=== PATIENT | male | born 1965 | race American Indian/Alaskan Native ===

== ENCOUNTER 2017-03-22 17:41 | Inpatient (IN) | payer SELFPAY ==
[2017-03-22] MEDS ORDERED: NACL 0.9% 500 ML 500 ML IV ONE (18:59)
[2017-03-22 19:52] LABS: Alanine Aminotransferase 20 units/L (7-56); Albumin 3.6 g/dL (3.9-5); Albumin/Globulin Ratio 0.9 %; Alkaline Phosphatase 107 units/L (35-129); Anion Gap 18 mmol/L; BUN/Creatinine Ratio 17.77; Blood Urea Nitrogen 16 mg/dL (9-20); Calcium 8.8 mg/dL (8.4-10.2); Carbon Dioxide 26 mmol/L (22-30); Chloride 94.7 mmol/L (98-107); Glucose 102 mg/dL (75-100); Potassium 4.2 mmol/L (3.6-5.0); Sodium 134 mmol/L (137-145); Total Protein 7.7 g/dL (6.3-8.2)
[2017-03-22 20:02] LABS: Basophils % (Auto) 0.9 % (0.0-1.8); Eosinophils % (Auto) 0.5 % (0.0-4.3); Hematocrit 38.1 % (35.5-45.6); Hemoglobin 12.5 gm/dl (11.8-15.2); Mean Corpuscular HGB Conc 33 % (32-34); Mean Corpuscular Hemoglobin 28 pg (28-32); Mean Corpuscular Volume 87 fl (84-94); Platelet Count 464 K/mm3 (140-440); White Blood Count 11.7 K/mm3 (4.5-11.0)
[2017-03-22 20:10] LABS: INR 0.96 (0.87-1.13)
--- NOTE | 2017-03-22 20:17 | XRay Report ---
FINAL REPORT EXAM: XR CHEST 1V AP HISTORY: possible Sepsis TECHNIQUE: AP portable view of the chest. PRIORS: None. FINDINGS: The cardiomediastinal silhouette appears normal. There is a small patchy oval opacity in the right mid lung. The left lung is clear. The bones and soft tissues are unremarkable. IMPRESSION: Right midlung oval patchy opacity probably consistent with infiltrate or mass. Recommend further evaluation with CT.
[2017-03-22 20:46] LABS: Bilirubin,Urine NEG (Negative); Blood,Urine MOD (Negative); Ketones,Urine TR mg/dL (Negative); Leukocyte Esterase,Urine NEG (Negative); Mucus,Urine 1+ /HPF; Nitrite,Urine NEG (Negative); WBC,Urine < 1.0 /HPF (0.0-6.0)
[2017-03-22] MEDS ORDERED: ZITHROMAX 500 MG in NACL 0.9% 250ML 250 ML IV ONE (21:29)
[2017-03-22] MEDS ORDERED: ROCEPHIN/NS 1 GM/50 ML 1 GM/50 ML BAG IV ONE (21:29)
[2017-03-22] MEDS ORDERED: NACL 0.9% 1000 ML 1,000 ML IV ONE (21:30)
--- NOTE | 2017-03-22 22:35 | Emergency Department Report ---
ED Fever HPI - General Chief Complaint: Fever Stated Complaint: FEVER/WEAKNESS Time Seen by Provider: 03/22/17 21:28 Source: patient, family Exam Limitations: no limitations - History of Present Illness Initial Comments: 51-year-old male with no significant past medical history presents to the hospital complaints of fever intermittently for the past 2 weeks. Positive cough productive of clear sputum now primarily dry. No reports of recent travel or known sick contacts. Patient complains of generalized achy joint pain. Decreased appetite reported. Denies shortness of breath, nausea, vomiting, diarrhea, [place] pain, or dysuria. Patient does smoke cigarettes. ED Review of Systems ROS: Stated complaint: FEVER/WEAKNESS Other details as noted in HPI Comment: All other systems reviewed and negative Other: Constitutional: As per HPI Eyes: No eye pain visual changes or discharge ENT: No ear pain or throat pain Neck: Denies pain Respiratory: Denies h wheezing shortness of breath Cardiovascular: Denies chest pain, palpitations, syncope GI: Denies abdominal pain, nausea, vomiting, diarrhea : Denies dysuria Musculoskeletal: Denies back pain Skin: Denies rash, lesions, erythema Neurologic: Denies headache, numbness, weakness Psychiatric: Denies suicidal ideation, hallucinations ED Past Medical Hx - Past Medical History Previous Medical History?: No - Surgical History Additional Surgical History: RIGHT KNEE SURGERY - Social History Smoking Status: Current Every Day Smoker Substance Use Type: None ED Physical Exam - General Limitations: No Limitations - Other Other exam information: General: No limitations, patient is alert in no acute distress Head exam: Atraumatic, normocephalic Eyes exam: Normal appearance, pupils equal reactive to light, extraocular movements intact ENT: Moist mucous membrane, normal oropharynx Neck exam: Normal inspection, full range of motion, no meningismus nontender Respiratory exam: Clear to auscultation bilateral, no wheezes, rales, crackles Cardiovascular: Normal rate and rhythm, normal heart sounds Abdomen: Soft, nondistended, and nontender, with normal bowel sounds, no rebound, or guarding Extremity: Full range of motion normal inspection no deformity Back: Normal Inspection, full range of motion, no tenderness Neurologic: Alert, oriented x3, cranial nerves intact, no motor or sensory deficit Psychiatric: normal affect, normal mood Skin: Warm, dry, intact ED Course Vital Signs 03/22/17 03/22/17 03/22/17 18:54 21:00 21:01 Temperature 100.7 F H 99.6 F Pulse Rate 98 H 94 H Respiratory 19 18 16 Rate Blood Pressure 124/79 Blood Pressure 99/68 [Left] O2 Sat by Pulse 100 98 98 Oximetry - Reevaluation(s) Reevaluation #1: 03/22/17 23:18 Blood pressure improving with saline - Consultations Consultation #1: 03/22/17 23:13 case d/w Dr. Coronado (field manager) rec Levaquin 750 and clindamycin 900 mg. Respiratory isolation and rule out TB. will consult ED Medical Decision Making - Lab Data Result diagrams: 03/22/17 19:14 03/22/17 19:14 Lab Results 03/22/17 03/22/17 03/22/17 Range/Units 19:14 19:14 19:14 WBC 11.7 H (4.5-11.0) K/mm3 RBC 4.40 (3.65-5.03) M/mm3 Hgb 12.5 (11.8-15.2) gm/dl Hct 38.1 (35.5-45.6) % MCV 87 (84-94) fl MCH 28 (28-32) pg MCHC 33 (32-34) % RDW 13.0 L (13.2-15.2) % Plt Count 464 H (140-440) K/mm3 Lymph % (Auto) 13.2 L (13.4-35.0) % [place] % (Auto) 7.4 H (0.0-7.3) % Eos % (Auto) 0.5 (0.0-4.3) % Baso % (Auto) 0.9 (0.0-1.8) % Lymph # 1.5 (1.2-5.4) K/mm3 [place] # 0.9 H (0.0-0.8) K/mm3 Eos # 0.1 (0.0-0.4) K/mm3 Baso # 0.1 (0.0-0.1) K/mm3 Seg Neutrophils % 78.0 H (40.0-70.0) % Seg Neutrophils # 9.1 H (1.8-7.7) K/mm3 PT 13.3 (12.2-14.9) Sec. INR 0.96 (0.87-1.13) VBG pH (7.320-7.420) Sodium 134 L (137-145) mmol/L Potassium 4.2 (3.6-5.0) mmol/L Chloride 94.7 L (98-107) mmol/L Carbon Dioxide 26 (22-30) mmol/L Anion Gap 18 mmol/L BUN 16 (9-20) mg/dL Creatinine 0.9 (0.8-1.5) mg/dL Estimated GFR > 60 ml/min BUN/Creatinine Ratio 17.77 % Glucose 102 H (75-100) mg/dL Lactic Acid (0.7-2.0) mmol/L Calcium 8.8 (8.4-10.2) mg/dL Total Bilirubin 0.20 (0.1-1.2) mg/dL AST 16 (5-40) units/L ALT 20 (7-56) units/L Alkaline Phosphatase 107 (35-129) units/L Total Protein 7.7 (6.3-8.2) g/dL Albumin 3.6 L (3.9-5) g/dL Albumin/Globulin Ratio 0.9 % Urine Color (Yellow) Urine Turbidity (Clear) Urine pH (5.0-7.0) Ur Specific [place] (1.003-1.030) Urine Protein (Negative) mg/dL Urine Glucose (UA) (Negative) mg/dL Urine Ketones (Negative) mg/dL Urine Blood (Negative) Urine Nitrite (Negative) Urine Bilirubin (Negative) Urine Urobilinogen (<2.0) mg/dL Ur Leukocyte Esterase (Negative) Urine WBC (Auto) (0.0-6.0) /HPF Urine RBC (Auto) (0.0-6.0) /HPF Urine Mucus /HPF 03/22/17 03/22/17 03/22/17 Range/Units 19:14 19:14 20:14 WBC (4.5-11.0) K/mm3 RBC (3.65-5.03) M/mm3 Hgb (11.8-15.2) gm/dl Hct (35.5-45.6) % MCV (84-94) fl MCH (28-32) pg MCHC (32-34) % RDW (13.2-15.2) % Plt Count (140-440) K/mm3 Lymph % (Auto) (13.4-35.0) % [place] % (Auto) (0.0-7.3) % Eos % (Auto) (0.0-4.3) % Baso % (Auto) (0.0-1.8) % Lymph # (1.2-5.4) K/mm3 [place] # (0.0-0.8) K/mm3 Eos # (0.0-0.4) K/mm3 Baso # (0.0-0.1) K/mm3 Seg Neutrophils % (40.0-70.0) % Seg Neutrophils # (1.8-7.7) K/mm3 PT (12.2-14.9) Sec. INR (0.87-1.13) VBG pH 7.420 (7.320-7.420) Sodium (137-145) mmol/L Potassium (3.6-5.0) mmol/L Chloride (98-107) mmol/L Carbon Dioxide (22-30) mmol/L Anion Gap mmol/L BUN (9-20) mg/dL Creatinine (0.8-1.5) mg/dL Estimated GFR ml/min BUN/Creatinine Ratio % Glucose (75-100) mg/dL Lactic Acid 0.80 (0.7-2.0) mmol/L Calcium (8.4-10.2) mg/dL Total Bilirubin (0.1-1.2) mg/dL AST (5-40) units/L ALT (7-56) units/L Alkaline Phosphatase (35-129) units/L Total Protein (6.3-8.2) g/dL Albumin (3.9-5) g/dL Albumin/Globulin Ratio % Urine Color Yellow (Yellow) Urine Turbidity Clear (Clear) Urine pH 6.0 (5.0-7.0) Ur Specific [place] 1.029 (1.003-1.030) Urine Protein 30 mg/dl (Negative) mg/dL Urine Glucose (UA) Neg (Negative) mg/dL Urine Ketones Tr (Negative) mg/dL Urine Blood Mod (Negative) Urine Nitrite Neg (Negative) Urine Bilirubin Neg (Negative) Urine Urobilinogen 2.0 (<2.0) mg/dL Ur Leukocyte Esterase Neg (Negative) Urine WBC (Auto) < 1.0 (0.0-6.0) /HPF Urine RBC (Auto) 91.0 (0.0-6.0) /HPF Urine Mucus 1+ /HPF 03/22/17 Range/Units 20:21 WBC (4.5-11.0) K/mm3 RBC (3.65-5.03) M/mm3 Hgb (11.8-15.2) gm/dl Hct (35.5-45.6) % MCV (84-94) fl MCH (28-32) pg MCHC (32-34) % RDW (13.2-15.2) % Plt Count (140-440) K/mm3 Lymph % (Auto) (13.4-35.0) % [place] % (Auto) (0.0-7.3) % Eos % (Auto) (0.0-4.3) % Baso % (Auto) (0.0-1.8) % Lymph # (1.2-5.4) K/mm3 [place] # (0.0-0.8) K/mm3 Eos # (0.0-0.4) K/mm3 Baso # (0.0-0.1) K/mm3 Seg Neutrophils % (40.0-70.0) % Seg Neutrophils # (1.8-7.7) K/mm3 PT (12.2-14.9) Sec. INR (0.87-1.13) VBG pH (7.320-7.420) Sodium (137-145) mmol/L Potassium (3.6-5.0) mmol/L Chloride (98-107) mmol/L Carbon Dioxide (22-30) mmol/L Anion Gap mmol/L BUN (9-20) mg/dL Creatinine (0.8-1.5) mg/dL Estimated GFR ml/min BUN/Creatinine Ratio % Glucose (75-100) mg/dL Lactic Acid 0.70 (0.7-2.0) mmol/L Calcium (8.4-10.2) mg/dL Total Bilirubin (0.1-1.2) mg/dL AST (5-40) units/L ALT (7-56) units/L Alkaline Phosphatase (35-129) units/L Total Protein (6.3-8.2) g/dL Albumin (3.9-5) g/dL Albumin/Globulin Ratio % Urine Color (Yellow) Urine Turbidity (Clear) Urine pH (5.0-7.0) Ur Specific [place] (1.003-1.030) Urine Protein (Negative) mg/dL Urine Glucose (UA) (Negative) mg/dL Urine Ketones (Negative) mg/dL Urine Blood (Negative) Urine Nitrite (Negative) Urine Bilirubin (Negative) Urine Urobilinogen (<2.0) mg/dL Ur Leukocyte Esterase (Negative) Urine WBC (Auto) (0.0-6.0) /HPF Urine RBC (Auto) (0.0-6.0) /HPF Urine Mucus /HPF - EKG Data -: EKG Interpreted by Me (sinus rhythm rate 88 with left atrial enlargement. No ST elevation [place]) - EKG Data When compared to previous EKG there are: previous EKG unavailable - Radiology Data Radiology results: report reviewed Chest x-ray: A right midlung oval patchy opacity probably consistent with infiltrate or mass. Recommend CT. CT chest IV contrast: Left upper lobe consolidated infiltrate is consistent with pneumonia with a small 1.7 cm abscess. There are infiltrates in the superior segment of the left lower lobe, and from medial right upper lobe and superior segment of the right lower lobe consistent with pneumonia possibly representing septic emboli. - Medical Decision Making Azithromycin and Rocephin initially given after initial chest x-ray reading of pneumonia. CT suggests abscess and multiple infiltrative processes therefore Levaquin and clindamycin also ordered after discussion for pulmonology. Patient in respiratory isolation until completely cleared for tuberculosis. Hospitalist will be performed. Cultures are pending. After discussion with Dr. Disla admitting physician and she recommends to hold on the Levaquin given that this drug can be used to treat TB and she would discuss treatment plan with field manager before administration - Differential Diagnosis viral syndrome, pneumonia, bronchitis, sepsis Critical Care Time: No Critical care attestation.: If time is entered above; I have spent that time in minutes in the direct care of this critically ill patient, excluding procedure time. ED Disposition Clinical Impression: Pneumonia, Pulmonary abscess Disposition: OP ADMIT IP TO THIS HOSP Is pt being admited?: Yes Condition: Stable Time of Disposition: 23:29 (Dr Disla/hosp)
--- NOTE | 2017-03-22 22:46 | Cat Scan Report ---
FINAL REPORT EXAM: CT CHEST W CON HISTORY: right lung oval infiltrate vs mass TECHNIQUE: High-resolution helical axial images were obtained of the chest during intravenous administration of iodinated contrast. Images are reconstructed in the sagittal and coronal planes. PRIORS: None. FINDINGS: The heart and thoracic aorta appear normal. There is no hilar or mediastinal adenopathy. There is a 4.8 x 3.9 x 3.7 cm left apical consolidative infiltrate with a 1.7 x 1.3 x 0.9 cm loculated fluid collection consistent with an abscess. It also has a 7 mm cavity. There is a 1.8 cm rounded shaggy mass with a small internal cavity in the superior segment of the left lower lobe. It has a 5 mm satellite lesion. On the right there is a superior segment right lower lobe peripheral wedge-shaped consolidative infiltrate measuring 3.0 cm. This corresponds to the radiographic finding. There is a small inferior medial right upper lobe infiltrate. Images through the upper abdomen are unremarkable. The bones are unremarkable. IMPRESSION: 1. Left upper lobe consolidative infiltrate is consistent with pneumonia with a small, 1.7 cm abscess. 2. There are infiltrates in the superior segment of the left lower lobe, inferomedial right upper lobe and superior segment of the right lower lobe consistent with pneumonia and possibly representing septic emboli.
[2017-03-22] MEDS ORDERED: TORADOL IV ONE (22:48)
[2017-03-22] MEDS ORDERED: TYLENOL PO ONE (22:48)
[2017-03-22] MEDS ORDERED: CLEOCIN 900 MG/50 mL 900 MG/50 ML BAG IV ONE (23:11)
[2017-03-22] MEDS ORDERED: LEVAQUIN 750MG/150ML 750 MG/150 ML BAG IV ONE (23:11)
--- NOTE | 2017-03-22 23:43 | History and Physical Report ---
History of Present Illness Date of examination: 03/22/17 History of present illness: 51-year-old man with no medical problems comes emergency room with complaints of fever and chills intermittently over one and a half weeks. He complains of a cough productive of clear phlegm. He denies shortness of breath, hemoptysis, weight loss, night sweats Patient denies chest pain, palpitation, shortness of breath, cough, abdominal pain, hematochezia, dysuria, frequency, focal weakness, dysarthria, polydipsia polyuria, hot or cold intolerance, easy bruisability, or rash or bleeding from mucosal membrane, rhinorrhea, epistaxis, earache, tinnitus, blurry vision, eye discharge, anxiety, depression. Other review of systems negative Past medical history: none PAST SURGICAL HISTORY: Knee surgery SOCIAL HISTORY: Admits to tobacco, alcohol, no drugs FAMILY HISTORY: Hypertension Medications and Allergies Allergies Allergy/AdvReac Type Severity Reaction Status Date / Time No Known Allergies Allergy Verified 03/22/17 21:29 Exam - Physical Exam Narrative exam: Gen. appearance: Patient lying in bed, no apparent distress HEENT: Normocephalic, atraumatic, pupils equally round and reactive to light, extraocular movement intact, and no sclericterus,. No JVD or thyromegaly or nodule,neck supple, no carotid bruit ,mucous membranes moist, no exudate or erythema Heart: S1, S2, regular rate and rhythm Lungs: Crackles in the lung upper lung, breathing comfortable Abdomen: Positive bowel sounds, nontender, nondistended, no organomegaly Extremity: No edema, cyanosis, clubbing Skin: No rash, nodules, warm, dry Neuro: Oriented 3, cranial nerves II-12 intact, speech is fluent, motor and sensory intact - Constitutional Vitals: Temp Pulse Resp BP Pulse Ox 99.6 F 94 H 16 99/68 98 03/22/17 21:00 03/22/17 21:00 03/22/17 21:01 03/22/17 21:00 03/22/17 21:01 Results - Labs CBC & Chem 7: 03/22/17 19:14 03/22/17 19:14 Labs: Abnormal lab results 03/22/17 03/22/17 Range/Units 19:14 19:14 WBC 11.7 H (4.5-11.0) K/mm3 RDW 13.0 L (13.2-15.2) % Plt Count 464 H (140-440) K/mm3 Lymph % (Auto) 13.2 L (13.4-35.0) % [place] % (Auto) 7.4 H (0.0-7.3) % [place] # 0.9 H (0.0-0.8) K/mm3 Seg Neutrophils % 78.0 H (40.0-70.0) % Seg Neutrophils # 9.1 H (1.8-7.7) K/mm3 Sodium 134 L (137-145) mmol/L Chloride 94.7 L (98-107) mmol/L Glucose 102 H (75-100) mg/dL Albumin 3.6 L (3.9-5) g/dL - Imaging and Cardiology Chest x-ray: image reviewed CT scan - chest: report reviewed Assessment and Plan Assessment Community-acquired pneumonia with abscess, rule out TB Plan Admit to medicine Start IV Rocephin, clindamycin Place on respiratory isolation,follow cultures Consult pulmonary, check sputum for AFB Start DVT prophylaxis
[2017-03-23] MEDS ORDERED: TYLENOL PO PRN (00:09)
[2017-03-23] MEDS ORDERED: ZOFRAN IV PRN (00:09)
[2017-03-23] MEDS ORDERED: PROVENTIL IH PRN (00:09)
[2017-03-23] MEDS ORDERED: DULCOLAX PR PRN (00:09)
[2017-03-23] MEDS ORDERED: MILK OF MAGNESIA PO PRN (00:09)
--- NOTE | 2017-03-23 09:14 | Progress Note ---
Assessment and Plan Assessment and plan: Patient is a 51-year-old male with no significant past medical history presents to the hospital complaints of fever intermittently for the past 2 weeks with cough productive of clear sputum now primarily dry. No reports of recent travel or known sick contacts. Patient complains of generalized achy joint pain. Decreased appetite reported. Denies shortness of breath, nausea, vomiting, diarrhea, [place] pain, or dysuria. Patient does smoke cigarettes. imaging stuides were concerning for Left upper lobe consolidated infiltrate is consistent with pneumonia with a small 1.7 cm abscess. There are infiltrates in the superior segment of the left lower lobe, and from medial right upper lobe and superior segment of the right lower lobe consistent with pneumonia possibly representing septic emboli on CT. * Pneumonia with abscess, R/O TB vs mass- Continue emperic abx WITH Clindamycin and Rocephin, no growth on cultures, ID and pulmonary consult, Sputum for AFB, also check legionella Antigen. * Mild protein calorie malnutrition- paper bag inspector consult. * DVT/GI prophy History Interval history: Patient seen and examined, in no acute distress. denies any chest pain, nausea, vomiting or diarrhea and no chest pain or Hospitalist Physical - Physical exam Narrative exam: VITAL SIGNS: Reviewed. GENERAL: The patient appeared well nourished and normally developed. Vital signs as documented. HEAD: No signs of head trauma. EYES: Pupils are equal. Extraocular motions intact. EARS: Hearing grossly intact. MOUTH: Oropharynx is normal. NECK: No adenopathy, no JVD. CHEST: Chest with clear breath sounds bilaterally. No wheezes, rales, or rhonchi. CARDIAC: Regular rate and rhythm. S1 and S2, without murmurs, gallops, or rubs. VASCULAR: No Edema. Peripheral pulses normal and equal in all extremities. ABDOMEN: Soft, without detectable tenderness. No sign of distention. No rebound or guarding, and no masses palpated. Bowel Sounds normal. MUSCULOSKELETAL: Good range of motion of all major joints. Extremities without clubbing, cyanosis or edema. NEUROLOGIC EXAM: Alert and oriented x 3. No focal sensory or strength deficits. Speech normal. Follows commands. PSYCHIATRIC: Mood normal. SKIN: No rash or lesions. - Constitutional Vitals: Temp Pulse Resp BP Pulse Ox 98.9 F 91 H 18 128/67 98 03/23/17 08:00 03/23/17 08:00 03/23/17 08:00 03/23/17 08:00 03/23/17 08:00 Results - Labs CBC & Chem 7: 03/22/17 19:14 03/22/17 19:14 Labs: Laboratory Last Values WBC 11.7 K/mm3 (4.5-11.0) H 03/22/17 19:14 RBC 4.40 M/mm3 (3.65-5.03) 03/22/17 19:14 Hgb 12.5 gm/dl (11.8-15.2) 03/22/17 19:14 Hct 38.1 % (35.5-45.6) 03/22/17 19:14 MCV 87 fl (84-94) 03/22/17 19:14 MCH 28 pg (28-32) 03/22/17 19:14 MCHC 33 % (32-34) 03/22/17 19:14 RDW 13.0 % (13.2-15.2) L 03/22/17 19:14 Plt Count 464 K/mm3 (140-440) H 03/22/17 19:14 Lymph % (Auto) 13.2 % (13.4-35.0) L 03/22/17 19:14 [place] % (Auto) 7.4 % (0.0-7.3) H 03/22/17 19:14 Eos % (Auto) 0.5 % (0.0-4.3) 03/22/17 19:14 Baso % (Auto) 0.9 % (0.0-1.8) 03/22/17 19:14 Lymph # 1.5 K/mm3 (1.2-5.4) 03/22/17 19:14 [place] # 0.9 K/mm3 (0.0-0.8) H 03/22/17 19:14 Eos # 0.1 K/mm3 (0.0-0.4) 03/22/17 19:14 Baso # 0.1 K/mm3 (0.0-0.1) 03/22/17 19:14 Seg Neutrophils % 78.0 % (40.0-70.0) H 03/22/17 19:14 Seg Neutrophils # 9.1 K/mm3 (1.8-7.7) H 03/22/17 19:14 PT 13.3 Sec. (12.2-14.9) 03/22/17 19:14 INR 0.96 (0.87-1.13) 03/22/17 19:14 VBG pH 7.420 (7.320-7.420) 03/22/17 19:14 Sodium 134 mmol/L (137-145) L 03/22/17 19:14 Potassium 4.2 mmol/L (3.6-5.0) 03/22/17 19:14 Chloride 94.7 mmol/L (98-107) L 03/22/17 19:14 Carbon Dioxide 26 mmol/L (22-30) 03/22/17 19:14 Anion Gap 18 mmol/L 03/22/17 19:14 BUN 16 mg/dL (9-20) 03/22/17 19:14 Creatinine 0.9 mg/dL (0.8-1.5) 03/22/17 19:14 Estimated GFR > 60 ml/min 03/22/17 19:14 BUN/Creatinine Ratio 17.77 % 03/22/17 19:14 Glucose 102 mg/dL (75-100) H 03/22/17 19:14 Lactic Acid 0.70 mmol/L (0.7-2.0) 03/22/17 20:21 Calcium 8.8 mg/dL (8.4-10.2) 03/22/17 19:14 Total Bilirubin 0.20 mg/dL (0.1-1.2) 03/22/17 19:14 AST 16 units/L (5-40) 03/22/17 19:14 ALT 20 units/L (7-56) 03/22/17 19:14 Alkaline Phosphatase 107 units/L (35-129) 03/22/17 19:14 Total Protein 7.7 g/dL (6.3-8.2) 03/22/17 19:14 Albumin 3.6 g/dL (3.9-5) L 03/22/17 19:14 Albumin/Globulin Ratio 0.9 % 03/22/17 19:14 Urine Color Yellow (Yellow) 03/22/17 20:14 Urine Turbidity Clear (Clear) 03/22/17 20:14 Urine pH 6.0 (5.0-7.0) 03/22/17 20:14 Ur Specific [place] 1.029 (1.003-1.030) 03/22/17 20:14 Urine Protein 30 mg/dl mg/dL (Negative) 03/22/17 20:14 Urine Glucose (UA) Neg mg/dL (Negative) 03/22/17 20:14 Urine Ketones Tr mg/dL (Negative) 03/22/17 20:14 Urine Blood Mod (Negative) 03/22/17 20:14 Urine Nitrite Neg (Negative) 03/22/17 20:14 Urine Bilirubin Neg (Negative) 03/22/17 20:14 Urine Urobilinogen 2.0 mg/dL (<2.0) 03/22/17 20:14 Ur Leukocyte Esterase Neg (Negative) 03/22/17 20:14 Urine WBC (Auto) < 1.0 /HPF (0.0-6.0) 03/22/17 20:14 Urine RBC (Auto) 91.0 /HPF (0.0-6.0) 03/22/17 20:14 Urine Mucus 1+ /HPF 03/22/17 20:14
[2017-03-23] MEDS: ROCEPHIN/NS 1 GM/50 ML 1 GM/50 ML BAG IV SCH (09:25)
--- NOTE | 2017-03-23 16:28 | Consultation ---
History of Present Illness Consult date: 03/23/17 Requesting physician: SALLIE LEGGETT History of present illness: 51-year-old man with no medical problems comes emergency room with complaints of fever and chills intermittently over one and a half weeks. He complains of a cough productive of clear phlegm. He denies shortness of breath, hemoptysis, weight loss, but has night sweats Patient denies chest pain, palpitation, shortness of breath, cough, abdominal pain, hematochezia, dysuria, frequency, focal weakness, dysarthria, polydipsia polyuria, hot or cold intolerance, easy bruisability, or rash or bleeding from mucosal membrane, rhinorrhea, epistaxis, earache, tinnitus, blurry vision, eye discharge, anxiety, depression. Other review of systems negative No reports of recent travel or known sick contacts. Patient complains of generalized achy joint pain. Decreased appetite reported. Patient does smoke cigarettes 1/2 PPD to 1PPD. Imaging stuides were concerning for Left upper lobe consolidated infiltrate is consistent with pneumonia with a small 1.7 cm abscess. There are infiltrates in the superior segment of the left lower lobe, and from medial right upper lobe and superior segment of the right lower lobe consistent with pneumonia possibly representing septic emboli on CT. We have been consulted to assist with management. Differentials include septic emboli, however in the absence of positive blood cultures and his negative history of drug abuse, this is unlikely. He will need a TTE to r/o vegetations. Other differentials include cavitary pneumonia ( MRSA or lung abscess from aspiration-he does have a history of alcohol use). He looks too well for an acute bacterial process. With his history of smoking, >10Pack year, we must r/o cavitary malignancy with metastatic disease_ Nicotine withdrawl precautions, smoking cessation counselling done at the bedside CT guided biopsy of the right lower lobe pleural based lesion- send tissue for pathology and microbiology/fungal smear/AFB smear ad cultures. Other differentials include sarcoidosis, wergener's granulomatosis, fungal pneumonias and TB as previously mentioned. Patient needs appropriate coverage for CAP- add azithromycin to his antibiotic regimen. Avoid the respiratory fluoroquinolones as they can partially treat TB Place PPD. Get SIDRA with reflex. Urine drug screen HIV screen Care plan was discussed extensively with the patient and his fiancee at the bedside. They verbalized understanding, though the patient is frustrated by the whole process. Thank you very much for this consult. We shall continue to follow him. Please do not hesitate to call with questions or concerns Past History Past Medical History: No medical history Social history: smoking, full code, other (engaged) Family history: no significant family history Medications and Allergies Allergies Allergy/AdvReac Type Severity Reaction Status Date / Time No Known Allergies Allergy Verified 03/22/17 21:29 Home Medications Medication Instructions Recorded Confirmed Last Taken Type No Known Home Medications [No 03/23/17 03/23/17 Unknown History Reported Home Medications] Active Meds: Active Medications Acetaminophen (Tylenol) 650 mg PO Q4H PRN PRN Reason: Pain MILD(1-3)/Fever >100.5/OJEDA Albuterol (Proventil) 2.5 mg IH Q3HRT PRN PRN Reason: Shortness Of Breath Bisacodyl (Dulcolax) 10 mg MS QDAY PRN PRN Reason: Constipation unrelieved by MOM Ceftriaxone Sodium (Rocephin/Ns 1 Gm/50 Ml) 1 gm in 50 mls @ 100 mls/hr IV Q24HR TRACY PRN Reason: Protocol Last Admin: 03/23/17 09:25 Dose: 100 mls/hr Magnesium Hydroxide (Milk Of Magnesia) 30 ml PO Q4H PRN PRN Reason: Constipation Ondansetron HCl (Zofran) 4 mg IV Q8H PRN PRN Reason: N/V unrelieved by Reglan Review of Systems All systems: negative Physical Examination Vital signs: Vital Signs Temp Pulse Resp BP Pulse Ox 100.7 F H 98 H 19 124/79 100 03/22/17 18:54 03/22/17 18:54 03/22/17 18:54 03/22/17 18:54 03/22/17 18:54 General appearance: no acute distress Eyes: non-icteric ENT: oropharynx moist Neck: supple, no lymphadenopathy, no JVD Effort: normal Ascultation: Right: rhonchi (upper lobe ), Bilateral: diminished breath sounds Cardiovascular: regular rate and rhythm Gastrointestinal: normoactive bowel sounds, soft, non-tender, non-distended Integumentary: normal Extremities: no cyanosis, no edema, pink and warm, pulses normal, no ischemia or petechiae Musculoskeletal: no deformities Gait: normal gait, normal posture normal mental status, non-focal exam, pupils equal and round, CN II-XII normal, motor strength normal and mood appropriate, affect normal Results - Laboratory Findings CBC and BMP: 03/22/17 19:14 03/22/17 19:14 PT/INR, D-dimer PT 13.3 Sec. (12.2-14.9) 03/22/17 19:14 INR 0.96 (0.87-1.13) 03/22/17 19:14 - Diagnostic Findings CT scan - chest: image reviewed
[2017-03-24 06:07] LABS: Eosinophils % (Auto) 0.6 % (0.0-4.3); Hemoglobin 12.2 gm/dl (11.8-15.2); Mean Corpuscular HGB Conc 33 % (32-34); Mean Corpuscular Hemoglobin 28 pg (28-32); Mean Corpuscular Volume 86 fl (84-94); Platelet Count 456 K/mm3 (140-440); Red Blood Count 4.29 M/mm3 (3.65-5.03); Red Cell Distribution Width 13.1 % (13.2-15.2); White Blood Count 9.7 K/mm3 (4.5-11.0)
[2017-03-24 06:32] LABS: Anion Gap 19 mmol/L; Blood Urea Nitrogen 11 mg/dL (9-20); Calcium 8.9 mg/dL (8.4-10.2); Carbon Dioxide 24 mmol/L (22-30); Chloride 99.8 mmol/L (98-107); Glucose 93 mg/dL (75-100); Potassium 4.5 mmol/L (3.6-5.0); Sodium 138 mmol/L (137-145)
--- NOTE | 2017-03-24 09:56 | Progress Note ---
Assessment and Plan Assessment and plan: Patient is a 51-year-old male with no significant past medical history presents to the hospital complaints of fever intermittently for the past 2 weeks with cough productive of clear sputum now primarily dry. No reports of recent travel or known sick contacts. Patient complains of generalized achy joint pain. Decreased appetite reported. Denies shortness of breath, nausea, vomiting, diarrhea, [place] pain, or dysuria. Patient does smoke cigarettes. imaging stuides were concerning for Left upper lobe consolidated infiltrate is consistent with pneumonia with a small 1.7 cm abscess. There are infiltrates in the superior segment of the left lower lobe, and from medial right upper lobe and superior segment of the right lower lobe consistent with pneumonia possibly representing septic emboli on CT. * Pneumonia with abscess, R/O TB vs mass- Continue empiric abx W/ Clindamycin and Rocephin, Azithromycin added, no growth on cultures, ID and pulmonary consult NOTED, Sputum for AFB, also check legionella Antigen, Ct guided biopsy Held due to improvement, ?bronch evaluate for pathology/Micro/fungal smear, Afb Smear and cultures, Follow PPD, SIDRA, UDS, HIV screen. * Mild protein calorie malnutrition- catalyst operator consult. * Tobacco abuse- Cessation discussed in detail, 15 minutes of counselling, community resources provided. * DVT/GI prophy History Interval history: Patient seen and examined, in no acute distress. denies any chest pain, nausea, vomiting or diarrhea and no chest pain. Hospitalist Physical - Physical exam Narrative exam: VITAL SIGNS: Reviewed. GENERAL: The patient appeared well nourished and normally developed. Vital signs as documented. HEAD: No signs of head trauma. EYES: Pupils are equal. Extraocular motions intact. EARS: Hearing grossly intact. MOUTH: Oropharynx is normal. NECK: No adenopathy, no JVD. CHEST: Chest with clear breath sounds bilaterally. No wheezes, rales, or rhonchi. CARDIAC: Regular rate and rhythm. S1 and S2, without murmurs, gallops, or rubs. VASCULAR: No Edema. Peripheral pulses normal and equal in all extremities. ABDOMEN: Soft, without detectable tenderness. No sign of distention. No rebound or guarding, and no masses palpated. Bowel Sounds normal. MUSCULOSKELETAL: Good range of motion of all major joints. Extremities without clubbing, cyanosis or edema. NEUROLOGIC EXAM: Alert and oriented x 3. No focal sensory or strength deficits. Speech normal. Follows commands. PSYCHIATRIC: Mood normal. SKIN: No rash or lesions. - Constitutional Vitals: Temp Pulse Resp BP Pulse Ox 98.4 F 74 18 117/68 100 03/24/17 08:00 03/24/17 08:00 03/24/17 08:00 03/24/17 08:00 03/24/17 08:00 Results - Labs CBC & Chem 7: 03/24/17 05:45 03/24/17 05:45 Labs: Laboratory Last Values WBC 9.7 K/mm3 (4.5-11.0) 03/24/17 05:45 RBC 4.29 M/mm3 (3.65-5.03) 03/24/17 05:45 Hgb 12.2 gm/dl (11.8-15.2) 03/24/17 05:45 Hct 37.0 % (35.5-45.6) 03/24/17 05:45 MCV 86 fl (84-94) 03/24/17 05:45 MCH 28 pg (28-32) 03/24/17 05:45 MCHC 33 % (32-34) 03/24/17 05:45 RDW 13.1 % (13.2-15.2) L 03/24/17 05:45 Plt Count 456 K/mm3 (140-440) H 03/24/17 05:45 Lymph % (Auto) 18.6 % (13.4-35.0) 03/24/17 05:45 [place] % (Auto) 7.7 % (0.0-7.3) H 03/24/17 05:45 Eos % (Auto) 0.6 % (0.0-4.3) 03/24/17 05:45 Baso % (Auto) 1.0 % (0.0-1.8) 03/24/17 05:45 Lymph # 1.8 K/mm3 (1.2-5.4) 03/24/17 05:45 [place] # 0.7 K/mm3 (0.0-0.8) 03/24/17 05:45 Eos # 0.1 K/mm3 (0.0-0.4) 03/24/17 05:45 Baso # 0.1 K/mm3 (0.0-0.1) 03/24/17 05:45 Seg Neutrophils % 72.1 % (40.0-70.0) H 03/24/17 05:45 Seg Neutrophils # 7.0 K/mm3 (1.8-7.7) 03/24/17 05:45 PT 13.3 Sec. (12.2-14.9) 03/22/17 19:14 INR 0.96 (0.87-1.13) 03/22/17 19:14 VBG pH 7.420 (7.320-7.420) 03/22/17 19:14 Sodium 138 mmol/L (137-145) 03/24/17 05:45 Potassium 4.5 mmol/L (3.6-5.0) 03/24/17 05:45 Chloride 99.8 mmol/L (98-107) 03/24/17 05:45 Carbon Dioxide 24 mmol/L (22-30) 03/24/17 05:45 Anion Gap 19 mmol/L 03/24/17 05:45 BUN 11 mg/dL (9-20) 03/24/17 05:45 Creatinine 0.5 mg/dL (0.8-1.5) L 03/24/17 05:45 Estimated GFR > 60 ml/min 03/24/17 05:45 BUN/Creatinine Ratio 22.00 % 03/24/17 05:45 Glucose 93 mg/dL (75-100) 03/24/17 05:45 Lactic Acid 0.70 mmol/L (0.7-2.0) 03/22/17 20:21 Calcium 8.9 mg/dL (8.4-10.2) 03/24/17 05:45 Total Bilirubin 0.20 mg/dL (0.1-1.2) 03/22/17 19:14 AST 16 units/L (5-40) 03/22/17 19:14 ALT 20 units/L (7-56) 03/22/17 19:14 Alkaline Phosphatase 107 units/L (35-129) 03/22/17 19:14 Total Protein 7.7 g/dL (6.3-8.2) 03/22/17 19:14 Albumin 3.6 g/dL (3.9-5) L 03/22/17 19:14 Albumin/Globulin Ratio 0.9 % 03/22/17 19:14 Urine Color Yellow (Yellow) 03/22/17 20:14 Urine Turbidity Clear (Clear) 03/22/17 20:14 Urine pH 6.0 (5.0-7.0) 03/22/17 20:14 Ur Specific [place] 1.029 (1.003-1.030) 03/22/17 20:14 Urine Protein 30 mg/dl mg/dL (Negative) 03/22/17 20:14 Urine Glucose (UA) Neg mg/dL (Negative) 03/22/17 20:14 Urine Ketones Tr mg/dL (Negative) 03/22/17 20:14 Urine Blood Mod (Negative) 03/22/17 20:14 Urine Nitrite Neg (Negative) 03/22/17 20:14 Urine Bilirubin Neg (Negative) 03/22/17 20:14 Urine Urobilinogen 2.0 mg/dL (<2.0) 03/22/17 20:14 Ur Leukocyte Esterase Neg (Negative) 03/22/17 20:14 Urine WBC (Auto) < 1.0 /HPF (0.0-6.0) 03/22/17 20:14 Urine RBC (Auto) 91.0 /HPF (0.0-6.0) 03/22/17 20:14 Urine Mucus 1+ /HPF 03/22/17 20:14 - Imaging and Cardiology CT scan - chest: image reviewed (PULMONARY LESION SIZE IMPROVING.)
--- NOTE | 2017-03-24 10:19 | Admit Criteria Form ---
Admission Criteria Documentation: PULMONARY DISEASE GRG Clinical Indications for Admission to Inpatient Care ( Place 'X' for any and all applicable criteria): Hospital admission is needed for appropriate care of the patient because of 1 or more of the following(1)(2): [ ]I. Impending or actual respiratory arrest. See Respiratory Failure GRG guideline for severe respiratory disease and long-term mechanical ventilation patients. (3)(4) (5) [ ]II. Severe airflow or ventilation abnormalities (not responsive to emergency and observation care treatment as appropriate) as indicated by 1 or more of the following (6)(7)(8)(9) : [ ]a) PCO2 greater than 42 mm Hg (5.6 kPa) and pH less than 7.35 (new) [ ]b) Documented PCO2 increased more than 5 mm Hg (0.7 kPa) from disease baseline [ ]c) Airflow measurements[A] less than 60% of previous best or predicted (eg, peak expiratory flow rate less than 300 L/min) despite intensive emergent treatment(B) [ ]d) Required respiratory treatments that are performable only in acute inpatient setting [ ]III. Severe respiratory findings (not responsive to emergency and observation care treatment as appropriate) including 1 or more of the following(6)(9)(10): [ ]a) Respiratory distress as indicated by ALL of the following(6)(11): [ ]i) Patient with 1 or more of the following: [ ]1) Dyspnea (difficulty breathing) [ ]2) Tachypnea [ ]3) Abnormal breathing pattern (eg, chest retractions) [ ]4) Other evidence of difficulty breathing [ ]ii) Evidence of respiratory compromise indicated by 1 or more of the following: [ ]1) Hypoxemia [ ]2) Altered mental status [ ]3) Other evidence of respiratory compromise (eg, pulmonary edema on chest x-ray) [ ]b) Stridor [ ]c) Gross hemoptysis(12) [ ]d) Acute cyanosis [ ]IV. Chronic lung disease with severe deterioration (not responsive to emergency and observation care treatment as appropriate) as indicated by 1 or more of the following(7) (13): [ ]a) SaO2 5% below baseline in patient with chronic hypoxemia [ ]b) New requirement for supplemental oxygen to keep SaO2 at baseline or acceptable level [ ]c) Required supplemental oxygen performable only in acute inpatient setting [ ]d) Severe airflow or ventilation abnormalities [ ]e) Previouslymobile patient unable to walk between rooms [ ]f) Inability to eat or sleep due to dyspnea [ ]g) Altered mental status that is severe or persistent [X]V. Empyema or lung abscess(14)(15) [ ]Vl. Severe atelectasis or lung collapse(16)(17) [ ]Hever. Tuberculosis requiring inpatient treatment as indicated by 1 or more of the following(18)(19)(20)(21): [ ]a) Diagnosis suspected (eg, symptomatic patient from endemic area or in high-risk population, with abnormal chest imaging) and cannot be ruled out within observation care timeframe (ie, sputum analysis, nucleic acid amplification techniques not rapidly available or not diagnostic) [ ]b) Severely symptomatic patient (eg, Hypoxemia, Hemodynamic instability, Tachypnea) [ ]c) Okgyk-obgo-abmwcziox infection suspected in newly diagnosed patient (eg, treatment regimen may require near-term adjustment) [ ]d) Newly diagnosed patient at high-risk of short-term deterioration (eg, HIV positive, frail, immunocompromised, chronic lung disease) [ ]e) High infectivity suspected (eg, laryngeal disease, cavitary pulmonary lesions, ongoing positivity of sputum) and 1 or more of the following: [ ]i) Unexposed household contacts at high risk (eg, immunocompromised, elderly, infants, chronic lung disease) [ ]ii) Patient unable or unwilling to avoid exposing others (eg, significant psychiatric disease, substance abuse, developmental disability) [ ]f) Complication of tuberculosis requiring inpatient treatment (eg , constrictive pericarditis, tubercular meningitis) [ ]g) Hospitalization mandated by public health authority (eg, patient continually noncompliant with directly observed therapy) [ ]VIII. High-risk pulmonary infection as indicated by 1 or more of the following(22)(23)(24)(25): [ ]a) Temperature less than 95 degrees F (35 degrees C) or greater than 103.1 degrees F (39.5 degrees C) [ ]b) Hemodynamic instability [ ]c) Immunocompromised patient (eg, AIDS, post transplant, neutropenic)(26)(27) [ ]d) History of severe COPD(28) [ ]e) History of severely symptomatic congestive heart failure(29) [ ]f) Other high-risk comorbidity (eg, poorly controlled diabetes, cirrhosis, chronic renal insufficiency) [ ]g) Hypoxemia [ ]h) severe stridor (30) [ ]i) Outpatient, observation, or recovery facility therapy has failed, is not appropriate, or is not feasible. [ ]IX. Complications of tracheostomy that remains after emergency or observation level care(31)(32)(33)(34) [ ]X. Respiratory complications of organ transplant (eg, rejection, respiratory failure, respiratory infection)(27) [ ]XI. Severe pulmonary arterial hypertension or pulmonary vascular disease requiring inpatient care indicated by 1 or more of the following(35)(36)(37)(38): [ ]a) Initiation or change of vasodilators (IV, subcutaneous, or inhaled) or other vasoactive medications needed [ ]b) IV anticoagulation needed (eg, immediate anticoagulation necessary, alternatives not appropriate) [ ]c) Arterial or pulmonary artery catheter monitoring needed due to infusion or other treatment [ ]XII. Cystic fibrosis requiring inpatient care as indicated by 1 or more of the following(39)(40): [ ]a) Severe exacerbation that does not respond to intensified home therapy(41) [ ]b) Severe exacerbation with patient unable to perform prescribed treatments at home [ ]c) Pneumonia [ ]d) Pneumothorax(42) [ ]e) Atelectasis [ ]f) Hemoptysis(43) [ ]XIII. Bronchiectasis requiring inpatient care as indicated by 1 or more of the following(44)(45): [ ]a) Respiratory distress [ ]b) Severe exacerbation and outpatient or observation care therapy has failed, is not appropriate, or is not feasible. [ ]XIV. Sarcoidosis requiring inpatient care as indicated by 1 or more of the following(46)(47)(48): [ ]a) Respiratory distress [ ]b) Cardiac involvement with arrhythmia(49) [ ]c) Outpatient or observation care therapy has failed, is not appropriate, or is not feasible. [ ]XV. Intestitial lung disease requiring inpatient care as indicated by 1 or more of the following(50)(51): [ ]a) Respiratory distress [ ]b) Severe exacerbation and outpatient or observation care therapy has failed, is not appropriate, or is not feasible [ ]XVI. Allergic pneumonitis requiring inpatient care as indicated by 1 or more of the following(52): [ ]a) Respiratory distress [ ]b) Acute eosinophilic pneumonia [ ]c) [place] with cardiac involvement [ ]d) Outpatient or observation care therapy has failed, is not appropriate, or is not feasible [ ]XVIl. Severe right heart failure requiring inpatient care as indicated by 1 or more of the following(35)(53)(54): [ ]a) Respiratory distress [ ]b) Debilitating anasarca that remains after emergency or observation level care (eg, tissue [ ]c) breakdown with severe infection, inability to void due to edema) [C](41)(42)(43)(44) [ ]d) Hemodynamic instability [ ]e) Syncope [ ]f) Angina that requires inpatient care (eg, not treatable in emergency or observation level of care) [ ]g) Increasing organ failure (eg, liver congestion with significant and worsening or new elevation of transaminases) [ ]XVIll. Injury requiring inpatient care (medical) as indicated by 1 or more of the following(59)(60)(61) [ ]a) Significant inhalation injury (eg, smoke inhalation, other toxic inhalation)(62)(63)(64) [ ]b) Airway obstruction that remains or is unstable after emergency or observation level care(65)(66) [ ]c) Severe pain requiring acute inpatient management [ ]d) Lung contusion(67) [ ]e) Flail chest(68) [ ]f) Bronchial tree injury [ ]g) Air or fat emboli [ ]h) Other injury not treatable in emergency or observation level care (eg, hemothorax)(55) [ ]XlX. Pulmonary hemorrhage or significant hemoptysis(12)(43)(69) [ ]XXl. Complications of transplanted lung indicated by 1 or more of the following(70)(71) [ ]a) Acute graft rejection requiring inpatient management (eg, intravenous immunosuppression)(72)(73)(74) [ ]b) Failure of transplant lung as indicated by 1 or more of the following(75)(76): [ ]i) Anastomotic leak [ ]ii) Airway ischemia or necrosis [ ]iii) Airway fistula [ ]iv) Obstructing granulation tissue requiring intervention [ ]v) Bronchial stenosis or stricture requiring intervention [ ]vi) Tracheobronchomalacia requiring intervention [ ]vii) Severe airflow or ventilation abnormalities [ ]viii) Severe respiratory findings [ ]c) Infection requiring inpatient management (eg, Hemodynamic instability, need for intravenous antimicrobial treatment)(77)(78)(79)(80)(81)(82 [ ]d) Other complication of transplanted lung (eg, obliterative bronchiolitis, plastic bronchitis, thrombotic microangiopathy, constrictive pericarditis) requiring inpatient management(83)(84)(85)(86)(87) [ ]XXll. Inpatient palliative care needed.[D](88)(89)(90)(91) [ ]XXlll. Pulmonary Disease condition, symptom, or finding for which emergency and observation care have failed or are not considered appropriate. The original [facility] content created by [employer] has been revised. The portions of the content which have been revised are identified through the use of italic text or in bold, and [facility] has neither reviewed nor approved the modified material. All other unmodified content is copyright [facility]. Please see references footnoted in the original [facility] edition 2017 Admission Criteria Met: Yes
[2017-03-24] MEDS ORDERED: SUBLIMAZE ONE (11:16)
[2017-03-24] MEDS ORDERED: VERSED IV ONE (11:16)
--- NOTE | 2017-03-24 11:37 | Event Note ---
Date: 03/24/17 Patient was brought down to CT scan in anticipation of biopsy. Initial vamp maker CT was performed of the chest. All 3 of his lesions have decreased in size from comparison exam there fore biopsy was not performed.. Suggests an infectious etiology. Further characterization with bronchoscopy may be beneficial.
[2017-03-24] MEDS ORDERED: APLISOL ID ONE (12:00)
[2017-03-24] MEDS: ROCEPHIN/NS 1 GM/50 ML 1 GM/50 ML BAG IV SCH (12:22)
--- NOTE | 2017-03-24 13:29 | Consultation ---
History of Present Illness - Reason for Consult Consult date: 03/24/17 Cavitary Pneumonia, r/o Tuberculosis Requesting physician: SALLIE LEGGETT - History of Present Illness Mr. Cantor is a 51-year-old man with no known past medical history admitted with fever, chills and a productive cough of clear sputum. He denied hemoptysis ad other constitutional complaints. A chest radiograph showed a right middle lobe infiltrate vs. mass. A follow-up CT chest showed a left apical infiltrate measuring ~ 5 X 4 x4 cm with a loculated, fluid-filled component. There were other infiltrative areas bilaterally concerning for septic emboli potentially. He is prescribed Ceftriaxone, Azithromycin and Clindamyin empirically. A lung biopsy is requested, but was cancelled today because the lesions have decreased in size with higher suspicion given to an infectious process. ID consultation is requested for evaluation of a potential infectious etiology of the lung infiltrates/ cavities. Past History Past Medical History: No medical history Past Surgical History: No surgical history Social history: smoking, full code, other (engaged) Family history: no significant family history Medications and Allergies Allergies Allergy/AdvReac Type Severity Reaction Status Date / Time No Known Allergies Allergy Verified 03/22/17 21:29 Home Medications Medication Instructions Recorded Confirmed Last Taken Type No Known Home Medications [No 03/23/17 03/23/17 Unknown History Reported Home Medications] Active Meds: Active Medications Acetaminophen (Tylenol) 650 mg PO Q4H PRN PRN Reason: Pain MILD(1-3)/Fever >100.5/OJEDA Albuterol (Proventil) 2.5 mg IH Q3HRT PRN PRN Reason: Shortness Of Breath Bisacodyl (Dulcolax) 10 mg [place] QDAY PRN PRN Reason: Constipation unrelieved by MOM Ceftriaxone Sodium (Rocephin/Ns 1 Gm/50 Ml) 1 gm in 50 mls @ 100 mls/hr IV Q24HR TRACY PRN Reason: Protocol Last Admin: 03/24/17 12:22 Dose: 100 mls/hr Azithromycin 500 mg/ Sodium (Chloride) 250 mls @ 250 mls/hr IV Q24HR TRACY Clindamycin HCl (Cleocin 900 Mg/50 Ml) 900 mg in 50 mls @ 100 mls/hr IV Q8HR TRACY Magnesium Hydroxide (Milk Of Magnesia) 30 ml PO Q4H PRN PRN Reason: Constipation Ondansetron HCl (Zofran) 4 mg IV Q8H PRN PRN Reason: N/V unrelieved by Reglan Review of Systems All systems: negative Constitutional: fever, no chills, no sweats Respiratory: cough with sputum, shortness of breath, no hemoptysis Gastrointestinal: abdominal pain, nausea, no vomiting, no diarrhea Musculoskeletal: other (left arm pain (IV site)) Integumentary: no rash, no pruritis Physical Examination - Constitutional Vitals: Vital Signs Temp Pulse Resp BP Pulse Ox 98.4 F 74 18 117/68 98 03/24/17 08:00 03/24/17 08:00 03/24/17 08:00 03/24/17 08:00 03/24/17 10:37 Temperature -Last 24 Hours Temperature 98.4 F Temperature 98.2 F Temperature 99 F General appearance: Present: no acute distress, well-nourished - EENT Eyes: Absent: scleral icterus - Neck Neck: Present: supple - Respiratory Respiratory effort: normal Respiratory: bilateral: CTA, negative: rales, rhonchi - Cardiovascular Rhythm: regular Heart Sounds: Present: S1 & S2 - Extremities Extremities: No edema - Abdominal General gastrointestinal: Present: soft, non-distended - Integumentary Integumentary: Absent: rash - Psychiatric Psychiatric: agitated - Neurologic Neurologic: no focal deficits Results - Labs CBC & Chem 7: 03/24/17 05:45 03/24/17 05:45 Labs: Abnormal lab results 03/24/17 03/24/17 Range/Units 05:45 05:45 RDW 13.1 L (13.2-15.2) % Plt Count 456 H (140-440) K/mm3 [place] % (Auto) 7.7 H (0.0-7.3) % Seg Neutrophils % 72.1 H (40.0-70.0) % Creatinine 0.5 L (0.8-1.5) mg/dL Microbiology 03/22/17 20:14 Urine,Clean Catch Urine Culture - Preliminary NO GROWTH AFTER 48 HOURS 03/22/17 19:36 Peripheral/Venous Blood Culture - Preliminary NO GROWTH AFTER 24 HOURS 03/22/17 19:14 Peripheral/Venous Blood Culture - Preliminary NO GROWTH AFTER 24 HOURS - Imaging and Cardiology Chest x-ray: report reviewed CT scan - chest: report reviewed Assessment and Plan - Patient Problems (1) Pulmonary abscess Current Visit: Yes Status: Acute Qualifiers: Pulmonary abscess pneumonia presence: with pneumonia Laterality: unspecified laterality Lung location: L Qualified Code(s): J85.1 - Abscess of lung with pneumonia Plan to address problem: 1. An echocardiogram is already requested. Await result. 2. Will screen for HIV infection, also check quantiferon, fungal studies. 3. Blood cultures are negative to date. 4. Agree with airborne isolation for now.
--- NOTE | 2017-03-24 14:05 | Cat Scan Report ---
EXAM: LIMITED CT OF THE CHEST CLINICAL INDICATION: PATIENT WITH LEFT UPPER LOBE AND BILATERAL LOWER LOBE PULMONARY MASSES WITH UNEXPLAINED FEVER DATE: 03/24/2017 PROCEDURE: Following a explanation of the risks, benefits and alternatives; number written informed consent was obtained. The patient was brought to the CT suite and initial entomology professor images of the chest were obtained in anticipation of biopsy. The 3 lesions in the left upper lobe and bilateral lower lobe were identified. All appear smaller on today's exam than on comparison examinations. At this point therefore, a decision was made to discontinue the biopsy attempt. IMPRESSION: 1) Interval decrease in size in the patient's pulmonary lesions. If there is continued clinical concern, bronchoscopy may be beneficial.
[2017-03-24 14:57] LABS: HIV-1 Antigen p24 Non React (Non React); HIVR-1/2 Ab Non React (Non React)
[2017-03-24] MEDS: CLEOCIN 900 MG/50 mL 900 MG/50 ML BAG IV SCH ×2 (17:07→22:16)
[2017-03-24] MEDS: ZITHROMAX 500 MG in NACL 0.9% 250ML 250 ML IV SCH (18:12)
--- NOTE | 2017-03-24 19:19 | Progress Note ---
Assessment and Plan Patient alert, awake and resting on room air. O2 saturation 100%.Patient afebrile .No complaint of chest pain or shortness of breath.Patient CT biopsy of lung lesion cancelled by Radiologist, since lung lesions showing improvement. - Patient Problems (1) Pulmonary abscess Current Visit: Yes Status: Acute Qualifiers: Pulmonary abscess pneumonia presence: with pneumonia Laterality: unspecified laterality Lung location: L Qualified Code(s): J85.1 - Abscess of lung with pneumonia Plan to address problem: Continue present antibiotics ceftrioxone, azithromycin and clindamycin. Repeat chest xray in few days. (2) Tobacco dependence syndrome Current Visit: Yes Status: Acute Plan to address problem: Counselled to stop smoking. Albuterol inhalor HFA 2 puffs po qid prn for shortness of breath. Subjective Date of service: 03/24/17 Interval history: Patient alert, awake and resting on room air. O2 saturation 100%.Patient afebrile .No complaint of chest pain or shortness of breath.Patient CT biopsy of lung lesion cancelled by Radiologist, since lung lesions showing improvement. Objective Vital Signs - 12hr 03/24/17 03/24/17 03/24/17 08:00 10:37 15:00 Temperature 98.4 F 98.8 F Pulse Rate [ 74 91 H Right From Monitor] Respiratory 20 18 Rate Blood Pressure 117/68 118/79 [Left Arm] O2 Sat by Pulse 98 98 100 Oximetry Constitutional: no acute distress, alert Eyes: non-icteric ENT: oropharynx moist Neck: supple, no lymphadenopathy, no JVD Effort: normal Ascultation: Right: rhonchi (upper lobe ), Bilateral: diminished breath sounds Cardiovascular: regular rate and rhythm Gastrointestinal: normoactive bowel sounds, soft, non-tender, non-distended Integumentary: normal Extremities: no cyanosis, no edema, pink and warm, pulses normal, no ischemia or petechiae Neurologic: normal mental status, non-focal exam, pupils equal and round, CN II- XII normal, motor strength normal and Psychiatric: mood appropriate, affect normal CBC and BMP: 03/24/17 05:45 03/24/17 05:45 ABG, PT/INR, D-dimer: PT/INR, D-dimer PT 13.3 Sec. (12.2-14.9) 03/22/17 19:14 INR 0.96 (0.87-1.13) 03/22/17 19:14 Abnormal lab findings: Abnormal Labs 03/24/17 03/24/17 05:45 05:45 RDW 13.1 L Plt Count 456 H [place] % (Auto) 7.7 H Seg Neutrophils % 72.[address] scan - chest: report reviewed (Improving lung infiltrates.)
[2017-03-25] MEDS: CLEOCIN 900 MG/50 mL 900 MG/50 ML BAG IV SCH ×3 (06:15→22:20)
--- NOTE | 2017-03-25 08:41 | Progress Note ---
Assessment and Plan Assessment and plan: Patient is a 51-year-old male with no significant past medical history presents to the hospital complaints of fever intermittently for the past 2 weeks with cough productive of clear sputum now primarily dry. No reports of recent travel or known sick contacts. Patient complains of generalized achy joint pain. Decreased appetite reported. Denies shortness of breath, nausea, vomiting, diarrhea, [place] pain, or dysuria. Patient does smoke cigarettes. imaging stuides were concerning for Left upper lobe consolidated infiltrate is consistent with pneumonia with a small 1.7 cm abscess. There are infiltrates in the superior segment of the left lower lobe, and from medial right upper lobe and superior segment of the right lower lobe consistent with pneumonia possibly representing septic emboli on CT. * Pneumonia with abscess, R/O TB vs mass- Continue empiric abx W/ Clindamycin and Rocephin, Azithromycin, No new fever, no growth on cultures, ID and pulmonary consult NOTED, Sputum for AFB, also check legionella Antigen, Ct guided biopsy Held due to improvement- This likely speaks against TB also, will await sudites adn discuss with ID, ?bronch evaluate for pathology/Micro/fungal smear, Afb Smear and cultures, Follow PPD- No reactivity noted, SIDRA, UDS. HIV screen is negative. Repeat xray in a am to see progression of resolution * Mild protein calorie malnutrition- delivery assistant consult. * Tobacco abuse- Cessation discussed in detail, 15 minutes of counselling, community resources provided. * DVT/GI prophy History Interval history: Patient seen and examined, in no acute distress. denies any chest pain, nausea, vomiting or diarrhea and no chest pain. No new complaints from nursing staff Hospitalist Physical - Physical exam Narrative exam: VITAL SIGNS: Reviewed. GENERAL: The patient appeared well nourished and normally developed. Vital signs as documented. HEAD: No signs of head trauma. EYES: Pupils are equal. Extraocular motions intact. EARS: Hearing grossly intact. MOUTH: Oropharynx is normal. NECK: No adenopathy, no JVD. CHEST: Chest with clear breath sounds bilaterally. No wheezes, rales, or rhonchi. CARDIAC: Regular rate and rhythm. S1 and S2, without murmurs, gallops, or rubs. VASCULAR: No Edema. Peripheral pulses normal and equal in all extremities. ABDOMEN: Soft, without detectable tenderness. No sign of distention. No rebound or guarding, and no masses palpated. Bowel Sounds normal. MUSCULOSKELETAL: Good range of motion of all major joints. Extremities without clubbing, cyanosis or edema. NEUROLOGIC EXAM: Alert and oriented x 3. No focal sensory or strength deficits. Speech normal. Follows commands. PSYCHIATRIC: Mood normal. SKIN: No rash or lesions. - Constitutional Vitals: Temp Pulse Resp BP Pulse Ox 98.9 F 75 18 125/75 97 03/24/17 23:30 03/24/17 23:30 03/24/17 23:30 03/24/17 23:30 03/24/17 23:30 General appearance: Present: no acute distress, well-nourished Results - Labs CBC & Chem 7: 03/24/17 05:45 03/24/17 05:45 Labs: Laboratory Last Values WBC 9.7 K/mm3 (4.5-11.0) 03/24/17 05:45 RBC 4.29 M/mm3 (3.65-5.03) 03/24/17 05:45 Hgb 12.2 gm/dl (11.8-15.2) 03/24/17 05:45 Hct 37.0 % (35.5-45.6) 03/24/17 05:45 MCV 86 fl (84-94) 03/24/17 05:45 MCH 28 pg (28-32) 03/24/17 05:45 MCHC 33 % (32-34) 03/24/17 05:45 RDW 13.1 % (13.2-15.2) L 03/24/17 05:45 Plt Count 456 K/mm3 (140-440) H 03/24/17 05:45 Lymph % (Auto) 18.6 % (13.4-35.0) 03/24/17 05:45 [place] % (Auto) 7.7 % (0.0-7.3) H 03/24/17 05:45 Eos % (Auto) 0.6 % (0.0-4.3) 03/24/17 05:45 Baso % (Auto) 1.0 % (0.0-1.8) 03/24/17 05:45 Lymph # 1.8 K/mm3 (1.2-5.4) 03/24/17 05:45 [place] # 0.7 K/mm3 (0.0-0.8) 03/24/17 05:45 Eos # 0.1 K/mm3 (0.0-0.4) 03/24/17 05:45 Baso # 0.1 K/mm3 (0.0-0.1) 03/24/17 05:45 Seg Neutrophils % 72.1 % (40.0-70.0) H 03/24/17 05:45 Seg Neutrophils # 7.0 K/mm3 (1.8-7.7) 03/24/17 05:45 PT 13.3 Sec. (12.2-14.9) 03/22/17 19:14 INR 0.96 (0.87-1.13) 03/22/17 19:14 VBG pH 7.420 (7.320-7.420) 03/22/17 19:14 Sodium 138 mmol/L (137-145) 03/24/17 05:45 Potassium 4.5 mmol/L (3.6-5.0) 03/24/17 05:45 Chloride 99.8 mmol/L (98-107) 03/24/17 05:45 Carbon Dioxide 24 mmol/L (22-30) 03/24/17 05:45 Anion Gap 19 mmol/L 03/24/17 05:45 BUN 11 mg/dL (9-20) 03/24/17 05:45 Creatinine 0.5 mg/dL (0.8-1.5) L 03/24/17 05:45 Estimated GFR > 60 ml/min 03/24/17 05:45 BUN/Creatinine Ratio 22.00 % 03/24/17 05:45 Glucose 93 mg/dL (75-100) 03/24/17 05:45 Lactic Acid 0.70 mmol/L (0.7-2.0) 03/22/17 20:21 Calcium 8.9 mg/dL (8.4-10.2) 03/24/17 05:45 Total Bilirubin 0.20 mg/dL (0.1-1.2) 03/22/17 19:14 AST 16 units/L (5-40) 03/22/17 19:14 ALT 20 units/L (7-56) 03/22/17 19:14 Alkaline Phosphatase 107 units/L (35-129) 03/22/17 19:14 Total Protein 7.7 g/dL (6.3-8.2) 03/22/17 19:14 Albumin 3.6 g/dL (3.9-5) L 03/22/17 19:14 Albumin/Globulin Ratio 0.9 % 03/22/17 19:14 Urine Color Yellow (Yellow) 03/22/17 20:14 Urine Turbidity Clear (Clear) 03/22/17 20:14 Urine pH 6.0 (5.0-7.0) 03/22/17 20:14 Ur Specific [place] 1.029 (1.003-1.030) 03/22/17 20:14 Urine Protein 30 mg/dl mg/dL (Negative) 03/22/17 20:14 Urine Glucose (UA) Neg mg/dL (Negative) 03/22/17 20:14 Urine Ketones Tr mg/dL (Negative) 03/22/17 20:14 Urine Blood Mod (Negative) 03/22/17 20:14 Urine Nitrite Neg (Negative) 03/22/17 20:14 Urine Bilirubin Neg (Negative) 03/22/17 20:14 Urine Urobilinogen 2.0 mg/dL (<2.0) 03/22/17 20:14 Ur Leukocyte Esterase Neg (Negative) 03/22/17 20:14 Urine WBC (Auto) < 1.0 /HPF (0.0-6.0) 03/22/17 20:14 Urine RBC (Auto) 91.0 /HPF (0.0-6.0) 03/22/17 20:14 Urine Mucus 1+ /HPF 03/22/17 20:14 HIV 1&2 Antibody Rapid Non react (Non React) 03/24/17 13:38 HIV P24 Antigen Non react (Non React) 03/24/17 13:38
[2017-03-25] MEDS: ROCEPHIN/NS 1 GM/50 ML 1 GM/50 ML BAG IV SCH (09:45)
[2017-03-25] MEDS: ZITHROMAX 500 MG in NACL 0.9% 250ML 250 ML IV SCH (12:43)
--- NOTE | 2017-03-25 19:37 | Progress Note ---
Assessment and Plan Patient alert, awake and resting on room air. O2 saturation 98%.Patient afebrile .No complaint of chest pain or shortness of breath.Patient CT biopsy of lung lesion cancelled by Radiologist, since lung lesions showing improvement.Continue present antibiotics and repeat chest xray in few days. - Patient Problems (1) Pulmonary abscess Current Visit: Yes Status: Acute Qualifiers: Pulmonary abscess pneumonia presence: with pneumonia Laterality: unspecified laterality Lung location: L Qualified Code(s): J85.1 - Abscess of lung with pneumonia Plan to address problem: Continue present antibiotics ceftrioxone, azithromycin and clindamycin. Repeat chest xray in few days. (2) Tobacco dependence syndrome Current Visit: Yes Status: Acute Plan to address problem: Counselled to stop smoking. Albuterol inhalor HFA 2 puffs po qid prn for shortness of breath. Subjective Date of service: 03/25/17 Interval history: Patient alert, awake and resting on room air. O2 saturation 97%.Patient afebrile .No complaint of chest pain or shortness of breath.Patient CT biopsy of lung lesion cancelled by Radiologist, since lung lesions showing improvement. Continue present antibiotics and repeat chest xray in few days. Objective Vital Signs - 12hr 03/25/17 03/25/17 03/25/17 08:00 09:55 15:00 Temperature 98.0 F 98.9 F Pulse Rate [ 68 85 Right From Monitor] Respiratory 18 18 18 Rate Respiratory Rate [ Generalized] Blood Pressure 99/68 96/61 [Left Arm] O2 Sat by Pulse 98 97 Oximetry 03/25/17 16:24 Temperature Pulse Rate [ Right From Monitor] Respiratory Rate Respiratory 20 Rate [ Generalized] Blood Pressure [Left Arm] O2 Sat by Pulse Oximetry Constitutional: no acute distress, alert Eyes: non-icteric ENT: oropharynx moist Neck: supple, no lymphadenopathy, no JVD Effort: normal Ascultation: Right: rhonchi (upper lobe ), Bilateral: diminished breath sounds Cardiovascular: regular rate and rhythm Gastrointestinal: normoactive bowel sounds, soft, non-tender, non-distended Integumentary: normal Extremities: no cyanosis, no edema, pink and warm, pulses normal, no ischemia or petechiae Neurologic: normal mental status, non-focal exam, pupils equal and round, CN II- XII normal, motor strength normal and Psychiatric: mood appropriate, affect normal CBC and BMP: 03/24/17 05:45 03/24/17 05:45 ABG, PT/INR, D-dimer: PT/INR, D-dimer PT 13.3 Sec. (12.2-14.9) 03/22/17 19:14 INR 0.96 (0.87-1.13) 03/22/17 19:14 Abnormal lab findings: Abnormal Labs 03/24/17 03/24/17 05:45 05:45 RDW 13.1 L Plt Count 456 H [place] % (Auto) 7.7 H Seg Neutrophils % 72.1 H Creatinine 0.5 L
[2017-03-26] MEDS: CLEOCIN 900 MG/50 mL 900 MG/50 ML BAG IV SCH ×3 (05:31→22:44)
--- NOTE | 2017-03-26 09:51 | XRay Report ---
ROUTINE CHEST, TWO VIEWS: HISTORY: Followup pneumonia with abscess. Compared to the CT chest dated 03/22/17. Subtle left upper lobe infiltrate is identified but as decreased by 50% since the previous exam. The remainder the lungs are generally well aerated. 1.5 cm nodular density lateral to the right hilum is noted. Lower lobe nodules are poorly imaged on chest x-ray. No pleural effusion or pneumothorax has developed. Heart size is within normal limits. IMPRESSION: Left upper lobe infiltrate has decreased by 50%.
[2017-03-26] MEDS: ROCEPHIN/NS 1 GM/50 ML 1 GM/50 ML BAG IV SCH (10:23)
[2017-03-26] MEDS: APLISOL ID ONE ×2 (10:24→12:16)
--- NOTE | 2017-03-26 11:38 | Progress Note ---
Assessment and Plan Assessment and plan: Patient is a 51-year-old male with no significant past medical history presents to the hospital complaints of fever intermittently for the past 2 weeks with cough productive of clear sputum now primarily dry. No reports of recent travel or known sick contacts. Patient complains of generalized achy joint pain. Decreased appetite reported. Denies shortness of breath, nausea, vomiting, diarrhea, [place] pain, or dysuria. Patient does smoke cigarettes. imaging stuides were concerning for Left upper lobe consolidated infiltrate is consistent with pneumonia with a small 1.7 cm abscess. There are infiltrates in the superior segment of the left lower lobe, and from medial right upper lobe and superior segment of the right lower lobe consistent with pneumonia possibly representing septic emboli on CT. * Pneumonia with abscess, R/O TB vs mass- Continue empiric abx W/ Clindamycin and Rocephin, Azithromycin, No new fever, no growth on cultures, ID and pulmonary consult NOTED, Sputum for AFB, also check legionella Antigen, Ct guided biopsy Held due to improvement- This likely speaks against TB also, will await studies and discuss with ID, ?bronch evaluate for pathology/Micro/fungal smear, Afb Smear and cultures, Follow PPD- SIDRA, UDS. HIV screen is negative. Repeat xray in a am to see progression of resolution * Mild protein calorie malnutrition- traffic administrator consult. * Indurated Right Upper ext:-IV infiltration site, Iv changed, monitor for resolution. Warm compress. * Tobacco abuse- Cessation discussed in detail, 15 minutes of counselling, community resources provided. * DVT/GI prophy * Discussed with the patient in detail and also discussed with the import/export freight forwarder who will also discuss with the patient. I have also showed the patient's case imaging studies that does not appear to be true improvement in this lesion NOTED in the lungs as previously documented. I have discussed with Microbiology , they have one sputum sample already sent out for AFB testing. PPD will be placed today, as it was inappropriately placed, and I have discussed this with the patient and the Nursing fur floor worker. History Interval history: Patient seen and examined, in no acute distress. denies any chest pain, nausea, vomiting or diarrhea and no chest pain. No new complaints from nursing staff. Patient was very concerned about his clinical care for which explained the plan of treatment for also apologized for delay in [place] services and also the expected wait for results in relation to TB diagnosis Hospitalist Physical - Physical exam Narrative exam: VITAL SIGNS: Reviewed. GENERAL: The patient appeared well nourished and normally developed. Vital signs as documented. HEAD: No signs of head trauma. EYES: Pupils are equal. Extraocular motions intact. EARS: Hearing grossly intact. MOUTH: Oropharynx is normal. NECK: No adenopathy, no JVD. CHEST: Chest with clear breath sounds bilaterally. No wheezes, rales, or rhonchi. CARDIAC: Regular rate and rhythm. S1 and S2, without murmurs, gallops, or rubs. VASCULAR: Right upper ext induration, tender. Peripheral pulses normal and equal in all extremities. ABDOMEN: Soft, without detectable tenderness. No sign of distention. No rebound or guarding, and no masses palpated. Bowel Sounds normal. MUSCULOSKELETAL: Good range of motion of all major joints. Extremities without clubbing, cyanosis or edema. NEUROLOGIC EXAM: Alert and oriented x 3. No focal sensory or strength deficits. Speech normal. Follows commands. PSYCHIATRIC: Mood normal. SKIN: No rash or lesions. - Constitutional Vitals: Temp Pulse Resp BP Pulse Ox 98.2 F 73 18 111/73 99 03/26/17 08:00 03/26/17 08:00 03/26/17 08:00 03/26/17 08:00 03/26/17 08:00 General appearance: Present: no acute distress, well-nourished Results - Labs CBC & Chem 7: 03/24/17 05:45 03/24/17 05:45 Labs: Laboratory Last Values WBC 9.7 K/mm3 (4.5-11.0) 03/24/17 05:45 RBC 4.29 M/mm3 (3.65-5.03) 03/24/17 05:45 Hgb 12.2 gm/dl (11.8-15.2) 03/24/17 05:45 Hct 37.0 % (35.5-45.6) 03/24/17 05:45 MCV 86 fl (84-94) 03/24/17 05:45 MCH 28 pg (28-32) 03/24/17 05:45 MCHC 33 % (32-34) 03/24/17 05:45 RDW 13.1 % (13.2-15.2) L 03/24/17 05:45 Plt Count 456 K/mm3 (140-440) H 03/24/17 05:45 Lymph % (Auto) 18.6 % (13.4-35.0) 03/24/17 05:45 [place] % (Auto) 7.7 % (0.0-7.3) H 03/24/17 05:45 Eos % (Auto) 0.6 % (0.0-4.3) 03/24/17 05:45 Baso % (Auto) 1.0 % (0.0-1.8) 03/24/17 05:45 Lymph # 1.8 K/mm3 (1.2-5.4) 03/24/17 05:45 [place] # 0.7 K/mm3 (0.0-0.8) 03/24/17 05:45 Eos # 0.1 K/mm3 (0.0-0.4) 03/24/17 05:45 Baso # 0.1 K/mm3 (0.0-0.1) 03/24/17 05:45 Seg Neutrophils % 72.1 % (40.0-70.0) H 03/24/17 05:45 Seg Neutrophils # 7.0 K/mm3 (1.8-7.7) 03/24/17 05:45 PT 13.3 Sec. (12.2-14.9) 03/22/17 19:14 INR 0.96 (0.87-1.13) 03/22/17 19:14 VBG pH 7.420 (7.320-7.420) 03/22/17 19:14 Sodium 138 mmol/L (137-145) 03/24/17 05:45 Potassium 4.5 mmol/L (3.6-5.0) 03/24/17 05:45 Chloride 99.8 mmol/L (98-107) 03/24/17 05:45 Carbon Dioxide 24 mmol/L (22-30) 03/24/17 05:45 Anion Gap 19 mmol/L 03/24/17 05:45 BUN 11 mg/dL (9-20) 03/24/17 05:45 Creatinine 0.5 mg/dL (0.8-1.5) L 03/24/17 05:45 Estimated GFR > 60 ml/min 03/24/17 05:45 BUN/Creatinine Ratio 22.00 % 03/24/17 05:45 Glucose 93 mg/dL (75-100) 03/24/17 05:45 Lactic Acid 0.70 mmol/L (0.7-2.0) 03/22/17 20:21 Calcium 8.9 mg/dL (8.4-10.2) 03/24/17 05:45 Total Bilirubin 0.20 mg/dL (0.1-1.2) 03/22/17 19:14 AST 16 units/L (5-40) 03/22/17 19:14 ALT 20 units/L (7-56) 03/22/17 19:14 Alkaline Phosphatase 107 units/L (35-129) 03/22/17 19:14 Total Protein 7.7 g/dL (6.3-8.2) 03/22/17 19:14 Albumin 3.6 g/dL (3.9-5) L 03/22/17 19:14 Albumin/Globulin Ratio 0.9 % 03/22/17 19:14 Urine Color Yellow (Yellow) 03/22/17 20:14 Urine Turbidity Clear (Clear) 03/22/17 20:14 Urine pH 6.0 (5.0-7.0) 03/22/17 20:14 Ur Specific [place] 1.029 (1.003-1.030) 03/22/17 20:14 Urine Protein 30 mg/dl mg/dL (Negative) 03/22/17 20:14 Urine Glucose (UA) Neg mg/dL (Negative) 03/22/17 20:14 Urine Ketones Tr mg/dL (Negative) 03/22/17 20:14 Urine Blood Mod (Negative) 03/22/17 20:14 Urine Nitrite Neg (Negative) 03/22/17 20:14 Urine Bilirubin Neg (Negative) 03/22/17 20:14 Urine Urobilinogen 2.0 mg/dL (<2.0) 03/22/17 20:14 Ur Leukocyte Esterase Neg (Negative) 03/22/17 20:14 Urine WBC (Auto) < 1.0 /HPF (0.0-6.0) 03/22/17 20:14 Urine RBC (Auto) 91.0 /HPF (0.0-6.0) 03/22/17 20:14 Urine Mucus 1+ /HPF 03/22/17 20:14 HIV 1&2 Antibody Rapid Non react (Non React) 03/24/17 13:38 HIV P24 Antigen Non react (Non React) 03/24/17 13:38
[2017-03-26] MEDS: ZITHROMAX 500 MG in NACL 0.9% 250ML 250 ML IV SCH (12:14)
--- NOTE | 2017-03-26 14:58 | Progress Note ---
Assessment and Plan Patient alert, awake and resting on room air. O2 saturation 98%.Patient afebrile .No complaint of chest pain or shortness of breath.Patient CT biopsy of lung lesion cancelled by Radiologist, since lung lesions showing improvement.Continue present antibiotics .Repeat chest xray today reported 50% improvement in left upper lobe infiltrate..Patients sputum for AFB and Quantiferon test results pending. - Patient Problems (1) Pulmonary abscess Current Visit: Yes Status: Acute Qualifiers: Pulmonary abscess pneumonia presence: with pneumonia Laterality: unspecified laterality Lung location: L Qualified Code(s): J85.1 - Abscess of lung with pneumonia Plan to address problem: Continue present antibiotics ceftrioxone, azithromycin and clindamycin. (2) Tobacco dependence syndrome Current Visit: Yes Status: Acute Plan to address problem: Counselled to stop smoking. Albuterol inhalor HFA 2 puffs po qid prn for shortness of breath. Subjective Date of service: 03/26/17 Interval history: Patient alert, awake and resting on room air. O2 saturation 97%.Patient afebrile .No complaint of chest pain or shortness of breath.Patient CT biopsy of lung lesion cancelled by Radiologist, since lung lesions showing improvement. Continue present antibiotics . Repeat chest xray today reported 50% improvement in left upper lobe infiltrate.. Patients sputum for AFB and Quantiferon test results pending. Objective Vital Signs - 12hr 03/26/17 08:00 Temperature 98.2 F Pulse Rate [ 73 Right From Monitor] Respiratory 18 Rate Blood Pressure 111/73 [Left Arm] O2 Sat by Pulse 99 Oximetry Constitutional: no acute distress, alert Eyes: non-icteric ENT: oropharynx moist Neck: supple, no lymphadenopathy, no JVD Effort: normal Ascultation: Right: rhonchi (upper lobe ), Bilateral: diminished breath sounds Cardiovascular: regular rate and rhythm Gastrointestinal: normoactive bowel sounds, soft, non-tender, non-distended Integumentary: normal Extremities: no cyanosis, no edema, pink and warm, pulses normal, no ischemia or petechiae Neurologic: normal mental status, non-focal exam, pupils equal and round, CN II- XII normal, motor strength normal and Psychiatric: mood appropriate, affect normal CBC and BMP: 03/24/17 05:45 03/24/17 05:45 ABG, PT/INR, D-dimer: PT/INR, D-dimer PT 13.3 Sec. (12.2-14.9) 03/22/17 19:14 INR 0.96 (0.87-1.13) 03/22/17 19:14 Abnormal lab findings: Abnormal Labs 03/24/17 03/24/17 05:45 05:45 RDW 13.1 L Plt Count 456 H [place] % (Auto) 7.7 H Seg Neutrophils % 72.1 H Creatinine 0.5 L Chest x-ray: report reviewed (Left upper lobe infiltrate decreased by 50%.), image reviewed
--- NOTE | 2017-03-26 18:14 | Event Note ---
Date: 03/26/17 Chart reviewed. Awaiting results of AFB and quantiferon studies. Continue same antibiotics for now.
[2017-03-27] MEDS: CLEOCIN 900 MG/50 mL 900 MG/50 ML BAG IV SCH ×2 (05:30→14:52)
[2017-03-27] MEDS ORDERED: ZITHROMAX PO SCH (10:00)
[2017-03-27] MEDS: ROCEPHIN/NS 1 GM/50 ML 1 GM/50 ML BAG IV SCH (10:13)
--- NOTE | 2017-03-27 10:34 | Progress Note ---
Assessment and Plan - Patient Problems (1) Cavitary pneumonia Current Visit: Yes Status: Acute Plan to address problem: - improving RLL peripheral lesion on current therapies - RUL lesion is persistent but less dense / consolidated - complete 5 days of empiric CAP AB's - PPD negative to date and AFB smear -ve X 1 - differential diagnosis will be broadened to include atypical sarcoidosis, wegeners, even a hypersensitivity type reaction or other connective tissue disease related lung disease; Also will do a VTE w/up to r/o post embolic infarct re: wedge shaped peripheral lesions - will order cANCA, pANCA, BRODERICK, SIDRA levels - doubt TB at this point - I have discusseed bronchoscopy with patient and he states that he will rather sign out AMA than allow any more procedures (2) Abnormal CT of the chest Current Visit: Yes Status: Acute Plan to address problem: - as above - reviewed with IR and will treat empirically with f/up imaging as in particular pleural based lesion is improving (3) Discharge planning issues Current Visit: Yes Status: Acute Plan to address problem: - if AFB smears negative and he continues to refuse invasive procedures then can discharge with instructions to f/up CT chest in 4 weeks and/or seek second opinion Subjective Date of service: 03/27/17 Principal diagnosis: Multifocal Pneumonia; Abnormal CT scan Interval history: Seen and examined at bedside; 24 hour events reviewed; nursing and respiratory care staff consulted; no adverse overnight events reported to me;resting peacefully in bed; denies hemoptysis; denies acute chest pains or increased SOB ; denies raynauds phenomenom or athritis; denies any use of masks at work but 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; No N/V/ F/C Objective Vital Signs - 12hr 03/26/17 03/27/17 23:55 08:00 Temperature 99.1 F 97.9 F Pulse Rate [ 71 85 Right From Monitor] Respiratory 20 18 Rate Blood Pressure 116/75 118/74 [Left Arm] O2 Sat by Pulse 99 100 Oximetry Constitutional: no acute distress, alert Eyes: non-icteric ENT: oropharynx moist Neck: supple, no lymphadenopathy, no JVD Effort: normal Ascultation: Bilateral: clear Cardiovascular: regular rate and rhythm Gastrointestinal: normoactive bowel sounds, soft, non-tender, non-distended Integumentary: normal Extremities: no cyanosis, no edema, pink and warm, pulses normal, no ischemia or petechiae Neurologic: normal mental status, non-focal exam, pupils equal and round, motor strength normal and Psychiatric: mood appropriate, affect normal CBC and BMP: 03/24/17 05:45 03/24/17 05:45 ABG, PT/INR, D-dimer: PT/INR, D-dimer PT 13.3 Sec. (12.2-14.9) 03/22/17 19:14 INR 0.96 (0.87-1.13) 03/22/17 19:14 Abnormal lab findings: Abnormal Labs 03/24/17 03/24/17 05:45 05:45 RDW 13.1 L Plt Count 456 H [place] % (Auto) 7.7 H Seg Neutrophils % 72.[address] scan - chest: image reviewed
--- NOTE | 2017-03-27 12:01 | Event Note ---
Date: 03/27/17 Reviewed imaging in person with Pulmonology. We collectively determined that between 03/22 and 03/24 the opacities on Chest CT have decreased in size. Therefore, the etiology is likely infectious/inflammatory and biopsy is not warranted at this time.
--- NOTE | 2017-03-27 18:22 | Progress Note ---
Assessment and Plan - Patient Problems (1) Pulmonary abscess Current Visit: Yes Status: Acute Qualifiers: Pulmonary abscess pneumonia presence: with pneumonia Laterality: unspecified laterality Lung location: L Qualified Code(s): J85.1 - Abscess of lung with pneumonia Plan to address problem: 1. Low suspicion for tuberculosis given totality of history and objective data. 2. Agree with discharge. However, patient is informed and has agreed to not return to work until cleared by hospital with negative AFB sputum studies x 3. I have provided my office's contact information for him. 3. Patient has already completed a sufficient duration of antibiotics for CAP. No further antibiotics are recommended at this time. Subjective Date of service: 03/27/17 Principal diagnosis: Multifocal Pneumonia; Abnormal CT scan Interval history: Clinically improved. AFB neg x 1. Chest imaging also improved. Objective - Constitutional Vitals: Vital Signs Temp Pulse Resp BP Pulse Ox 98.2 F 94 H 20 122/78 99 03/27/17 15:44 03/27/17 15:44 03/27/17 15:44 03/27/17 15:44 03/27/17 15:44 Temperature -Last 24 Hours Temperature 98.2 F Temperature 97.9 F Temperature 99.1 F General appearance: Present: no acute distress - EENT Eyes: no scleral icterus - Neck Neck: supple - Respiratory Respiratory effort: normal Respiratory: bilateral: CTA, negative: rales - Cardiovascular Rhythm: regular Heart Sounds: Present: S1 & S2 Extremities: No edema - Gastrointestinal General gastrointestinal: Present: soft, non-distended - Integumentary Integumentary: no jaundice, no rash - Psychiatric Psychiatric: appropriate mood/affect - Labs CBC & Chem 7: 03/24/17 05:45 03/24/17 05:45 Labs: Microbiology 03/23/17 05:00 Sputum - Expectorated Sputum AFB Smear Concentration - Final 03/22/17 19:36 Peripheral/Venous Blood Culture - Preliminary NO GROWTH AFTER 4 DAYS 03/22/17 19:14 Peripheral/Venous Blood Culture - Preliminary NO GROWTH AFTER 4 DAYS 03/24/17 13:38 Serum Cryptococcal Antigen - Final 03/22/17 20:14 Urine,Clean Catch Urine Culture - Preliminary NO GROWTH AFTER 48 HOURS
--- NOTE | 2017-03-27 19:58 | Discharge Summary ---
Providers - Providers Date of Admission: 03/22/17 23:44 Date of discharge: 03/27/17 Attending physician: SALLIE LEGGETT MD 03/23/17 09:16 Consult to Physician [CONS] Routine Consulting Provider: AMBER WOOD Reason For Exam: CAVITORY PNEUMONIA ?TB Place consult to:: dr. wood Notified:: office Phone number called:: [phone] Was contact made?: Yes If yes, spoke with:: yolanda Time called:: 09:52 Primary care physician: JACK SPINNER Hospitalization Reason for admission: FEVER Condition: Stable Hospital course: Patient is a 51-year-old male with no significant past medical history presents to the hospital complaints of fever intermittently for the past 2 weeks with cough productive of clear sputum now primarily dry. No reports of recent travel or known sick contacts. Patient complains of generalized achy joint pain. Decreased appetite reported. Denies shortness of breath, nausea, vomiting, diarrhea, [place] pain, or dysuria. Patient does smoke cigarettes. imaging stuides were concerning for Left upper lobe consolidated infiltrate is consistent with pneumonia with a small 1.7 cm abscess. There are infiltrates in the superior segment of the left lower lobe, and from medial right upper lobe and superior segment of the right lower lobe consistent with pneumonia possibly representing septic emboli on CT. initially the patient was appropriately admitted to rule out TB versus malignancy. Was started on empiric antibiotic coverage with clindamycin and Rocephin and azithromycin. Patient did not result any fever. On the day of biopsy as well as noted that the lesion had decreased in size which began to yield a low probability for tobacco losses pulmonary and infectious disease were consulted in addition to IR. Multiple etiologies were also considered would broaden the differential to include atypical sarcoidosis or mass and even hypersensitivity type reaction of connective tissue disease while malignancy still persistent. The patient had a PPD which was negative to date and AFB smear 1 was negative. The patient understands that although he is being discharged is not to return to work until 3 AFBs have returned negative he is to follow with pulmonary for a repeat CT scan. I also does have pending labs included cANCA, PANCA Arturo and SIDRA levels. He verbalized understanding. * Pneumonia with abscess/CAVITORY LESION * Mild protein calorie malnutrition * Indurated Right Upper ext * Tobacco abuse Disposition: DC- TO HOME OR SELFCARE Time spent for discharge: 35 mins Core Measure Documentation - Palliative Care Palliative Care/ Comfort Measures: Not Applicable - Core Measures Any of the following diagnoses?: none - VTE Discharge Requirements Deep Vein Thrombosis/Pulmonary Embolism Present on Admission: No Exam - Physical Exam Narrative exam: VITAL SIGNS: Reviewed. GENERAL: The patient appeared well nourished and normally developed. Vital signs as documented. HEAD: No signs of head trauma. EYES: Pupils are equal. Extraocular motions intact. EARS: Hearing grossly intact. MOUTH: Oropharynx is normal. NECK: No adenopathy, no JVD. CHEST: Chest with clear breath sounds bilaterally. No wheezes, rales, or rhonchi. CARDIAC: Regular rate and rhythm. S1 and S2, without murmurs, gallops, or rubs. VASCULAR: Right upper ext induration, tender. Peripheral pulses normal and equal in all extremities. ABDOMEN: Soft, without detectable tenderness. No sign of distention. No rebound or guarding, and no masses palpated. Bowel Sounds normal. MUSCULOSKELETAL: Good range of motion of all major joints. Extremities without clubbing, cyanosis or edema. NEUROLOGIC EXAM: Alert and oriented x 3. No focal sensory or strength deficits. Speech normal. Follows commands. PSYCHIATRIC: Mood normal. SKIN: No rash or lesions. - Constitutional Vitals: Temp Pulse Resp BP Pulse Ox 98.2 F 94 H 20 122/78 99 03/27/17 15:44 03/27/17 15:44 03/27/17 15:44 03/27/17 15:44 03/27/17 15:44 Plan Activity: advance as tolerated, fall precautions, other (DO NOT RETURN TO WORK TILL CLEARED BY PHYSICIAN WITH 3 NEG [employer]) Diet: regular Additional Instructions: MUST HAVE REPEAT CT CHEST IN 3 WEEKS TO ENSURE RESOLUTION Follow up with: KENIA SALES MD [Primary Care Provider] - 3-5 Days AMBER WOOD MD [Staff Physician] - 7 Days ZAIN GAITAN MD [Staff Physician] - 7 Days
[2017-03-27 21:01] VITALS: BP 116/75
== END 2017-03-27 20:30 | disposition home or self-care (01) | DRG 178 ==
LOC: ED 17:41 → 3A 23:44
PROVIDERS: ADMIT Internal Medicine; ATTEND Internal Medicine
DX: J85.1 Abscess of lung with pneumonia (principal); E44.1 Mild protein-calorie malnutrition; Z82.49 Family history of ischemic heart disease and other diseases of the circulatory system; Z68.24 Body mass index [BMI] 24.0-24.9, adult; Z71.6 Tobacco abuse counseling
CPT/HCPCS: 36415; 71010; 71020; 71250; 71260; 80048; 80053; 81001; 82140; 82164; 82805; 85025; 85610; 86038; 86403; 87040; 87086; 87449; 87806; 93005; 93010; 93306; 99406; J0456; J0696; J1885; J2250; J3010; J7030; J7050; Q9967